=== PATIENT | female | born 1935 | race Caucasian/White ===

== ENCOUNTER 2022-09-29 16:33 | Emergency (ER) | payer OTHER ==
[~2022-09-29] VITALS: Ht 167.6 cm; Wt 113.4 kg
[2022-09-29 16:33] VITALS: BP_SYST 170
--- NOTE | 2022-09-29 16:33 | NUR ---
BROUGHT IN BY [place] [id number] AND [facility], TRIAGED, AWAITING ER BED AVAILABILITY
[2022-09-29] MEDS ORDERED: METOCLOPRAMIDE HCL 10 MG/2 ML VIAL IVP ONE (17:00)
[2022-09-29] MEDS ORDERED: MECLIZINE HCL 25 MG TABLET (ANITVERT) PO ONE (17:00)
--- NOTE | 2022-09-29 17:15 | NUR ---
PT PLACED IN BED #3, REPORT TO BE GIVEN TO KURTIS
[2022-09-29 17:23] LABS: BASOPHILS # (AUTO) 0.1 K/uL (0.0-0.2); BASOPHILS % (AUTO) 0.9 % (0.0-2.0); EOSINOPHILS # (AUTO) 0.1 K/uL (0.0-0.4); EOSINOPHILS % (AUTO) 1.1 % (0.0-4.0); HEMATOCRIT 36.9 % (36-48); HEMOGLOBIN 12.1 g/dL (12.0-16.0); LYMPHOCYTES # (AUTO) 1.8 K/uL (1.0-5.5); LYMPHOCYTES % (AUTO) 24.2 % (20.5-51.5); MEAN CORPUSCULAR HEMOGLOBIN 31 pg (27-31); MEAN CORPUSCULAR HGB CONC 33 % (32-36); MEAN CORPUSCULAR VOLUME 94 fL (79.0-98.0); MONOCYTES # (AUTO) 0.7 K/uL (0.0-1.0); MONOCYTES % (AUTO) 9.6 % (1.7-9.3); NEUTROPHILS # (AUTO) 4.8 K/uL (1.8-7.7); NEUTROPHILS % (AUTO) 64.2 % (40.0-70.0); PLATELET COUNT (AUTO) 171 K/uL (130-430); RED BLOOD CELL COUNT(AUTO) 3.91 MIL/uL (4.2-6.2); RED CELL DISTRIBUTION WIDTH 14.1 % (9.0-15.0); WHITE BLOOD COUNT (AUTO) 7.4 K/uL (4.8-10.8)
--- NOTE | 2022-09-29 17:25 | NUR ---
RECEIVED PT FROM ROYAL KHAN. PT KARINA FOR C/O DIZZINESS. PT STATES SHE STRUGGLES WITH DIZZINESS FOR 2 YEARS BUT TODAY SHE COULDN'T TAKE IT ANYMORE. PT IS AAOX4. B/P 184/70/ DENIES H/A AND C/P. DENIES N/V/D/C. DISTAL PULSES NORMAL, SKIN CDI, WARM, NO EDEMA. DENIES PAIN. SIDERAILS UP X2. PLACED ON MONITOR
--- NOTE | 2022-09-29 18:00 | NUR ---
# 22 gauge angiocath placed to LAC. Use of asceptic technique. Opsite placed over site. Blood return noted. Flushed with 10 cc of normal saline. No evidence of infiltration noted. Patient tolerated well.
[2022-09-29 18:03] LABS: ANION GAP 11 (5-15); CHLORIDE 107 mmol/L (98-107); CREATININE 2.06 mg/dL (0.55-1.30); GLUCOSE 346 mg/dL (70-99); UREA NITROGEN, BLOOD 40 mg/dL (8-21)
[2022-09-29 18:14] LABS: ALANINE AMINOTRANSFERASE 49 U/L (12-78); ALBUMIN 3.4 g/dL (3.4-4.8); ASPARTATE AMINOTRANSFERASE 39 U/L (10-37); TOTAL BILIRUBIN 0.3 mg/dL (0.0-1.0)
[2022-09-29 18:23] LABS: INR 4.5 (0.8-1.2); PROTHROMBIN TIME 42.6 SECS (9.5-12.5)
--- NOTE | 2022-09-29 18:24 | NUR ---
SCHEDULED MEDS GIVEN AND TOLERATED WELL. XRAY COMPLETED.
--- NOTE | 2022-09-29 18:31 | NUR ---
REPORTED TO DR. BELTRÁN PT 43.6, INR 4.5.NNOS
[2022-09-29] MEDS ORDERED: WARF1TAB84 PO (18:36)
[2022-09-29] MEDS ORDERED: METO50TA7 PO (18:36)
[2022-09-29] MEDS ORDERED: LIP10 PO (18:36)
[2022-09-29] MEDS ORDERED: PROXL60 PO (18:36)
[2022-09-29] MEDS ORDERED: FURO-150 PO (18:36)
[2022-09-29] MEDS ORDERED: SODI650T PO (18:36)
[2022-09-29] MEDS ORDERED: GLIP10TA11 PO (18:36)
--- NOTE | 2022-09-29 18:37 | NUR ---
Medication reconciliation completed with information provided by [facility] PT BROUGHT IN. Any prior medication reconciliation on file was reviewed and corrected.
[2022-09-29] MEDS ORDERED: MECL-261 PO (19:33)
--- NOTE | 2022-09-29 19:36 | NUR ---
Pt AAOx4, denies c/o pain or discomfort, no needs verbalized at this time.
--- NOTE | 2022-09-29 19:36 | NUR ---
ENDORSED ALL CARE TO ROYAL DHALIWAL. ALL QUESTIONS AND CONCERNS ADDRESSED.
[2022-09-29] MEDS ORDERED: INSULIN REGULAR, HUMAN 10 UNITS/0.1 ML, 3 ML VIAL IVP ONE (19:45)
--- NOTE | 2022-09-29 20:06 | NUR ---
FSBS 229. Dr. Fernandez notified. Jonahay to give ordered dose of 6 Units Humulin R SQ.
[2022-09-29 21:05] VITALS: BP_SYST 138
--- NOTE | 2022-09-29 21:05 | NUR ---
Patient given written and verbal discharge instructions and verbalizes understanding. ER MD discussed with patient the results and treatment provided. Patient in stable condition. ID arm band removed. IV catheter removed intact and dressing applied, no active bleeding. Rx of Meclizine given. Patient educated on pain management and to follow up with PMD. Pain Scale 0/10. Opportunity for questions provided and answered. Medication side effect fact sheet provided.
== END 2022-09-29 21:05 | disposition home or self-care (01) ==
LOC: SED 16:33
DX: R42 Dizziness and giddiness (principal); R53.1 Weakness; D68.32 Hemorrhagic disorder due to extrinsic circulating anticoagulants; E11.65 Type 2 diabetes mellitus with hyperglycemia; R73.9 Hyperglycemia, unspecified; I10 Essential (primary) hypertension; Z79.899 Other long term (current) drug therapy
CPT/HCPCS: 99285; 96374; 70450; 71045; 80053; 82550; 82962; 85025; 85610; 85730; 84484; 36415; 93005; 76376; 96372; J8597; J1815; J2765